=== PATIENT | female | born 1995 | race Caucasian/White ===

== ENCOUNTER → 2018-07-17 | Outpatient (CLI) | payer BC ==
[~2018-07-17] MED LIST: CRANBERRY450 MG; FISH OIL 500 M1 EAC1 PO; HUMIRA40 MG/0.8 MR; MOBIC 7.5MG7.5 MG PO
== END ==
LOC: COL.RAD 17:27
DX: R19.00 Intra-abdominal and pelvic swelling, mass and lump, unspecified site (principal)
CPT/HCPCS: Q9967